=== PATIENT | female | born 1970 | race Caucasian/White ===

== ENCOUNTER 2025-03-08 18:55 | Emergency (ER) | payer MEDICAID ==
[2025-03-08 20:09] LABS: #Basophils 0.03 10x3/uL (0.0-0.2); #Eosinophils 0.34 10x3/uL (0.0-0.5); #Monocytes 0.77 10x3/uL (0.0-1.1); #Neutrophils 3.13 10x3/uL (1.5-8.4); %Basophils 0.4 % (0.0-2.0); %Eosinophils 4.4 % (0.0-6.0); %Lymphocytes 44.4 % (18.0-47.0); %Monocytes 10.0 % (0.0-10.0); %Neutrophils 40.4 % (40.0-75.0); Hematocrit 40.1 % (34.9-44.5); Hemoglobin 13.2 g/dL (12.0-15.5); Mean Corpuscular Hemoglobin 29.1 pg (27.0-33.0); Mean Corpuscular Volume 88.3 fL (81.6-98.3); Platelet Count 190 10x3/uL (150-450); Red Blood Cell (RBC) Count 4.54 10x6/uL (3.90-5.03); White Blood Cell (WBC) Count 7.73 10x3/uL (3.5-10.5)
[2025-03-08 20:25] LABS: ALT (SGPT) 33 U/L (Less than 34); AST (SGOT) 42 U/L (11-34); Albumin 3.3 g/dL (3.1-4.5); Alkaline Phosphatase 133 U/L (40-110); Anion Gap 11 mmol/L (10-20); BUN (Urea Nitrogen) 15 mg/dL (9.8-20.1); Bilirubin, Total 0.8 mg/dL (0.3-1.2); CK (CPK) 269 U/L (29-168); Calc. Creatinine Clearance 0 mL/min (70-130); Calcium 8.6 mg/dL (7.8-10.44); Carbon Dioxide 29 mmol/L (22-29); Chloride 101 mmol/L (98-107); Globulin 2.7 g/dL (2.4-3.5); Glucose 142 mg/dL (70-105); Potassium 4.1 mmol/L (3.5-5.1); Sodium 137 mmol/L (136-145)
[2025-03-08 20:30] LABS: Troponin I Less than 0.010 ng/mL (< 0.028)
[2025-03-08 21:00] LABS: Glucose, Urine (Dipstick) Normal (Negative); Leukocyte 500 (Negative); Protein, Urine (Dipstick) 30 mg/dl (Neg-Trace); Specific Gravity, Urine 1.025 (1.005-1.030)
[2025-03-08 21:07] LABS: Cocaine Metabolite Screen Negative (Negative); THC/Cannabinoid Screen Negative (Negative); Tricyclic Screen PRELIM POSITIVE (Negative)
[2025-03-08 21:10] LABS: CAUTI Indications for Culture Alt mental st,lethar; RBC/HPF 0-3 HPF (0-3); WBC/HPF 21-50 HPF (0-3)
[2025-03-08 21:11] LABS: Bacteria/HPF 4+ HPF (None Seen); Mucous/LPF 1+ LPF (<2+); Urine Culture Reflex Yes Yes
[2025-03-08] MEDS ORDERED: cefTRIAXone (ROCEPHIN) 1 GM VIAL ONE (21:36)
== END 2025-03-08 22:36 | disposition home or self-care (01) ==
LOC: CSHERS 18:55
DX: N39.0 Urinary tract infection, site not specified (principal); E86.0 Dehydration; F11.20 Opioid dependence, uncomplicated
CPT/HCPCS: 70450; 80053; 80306; 81001; 82550; 83605; 84484; 85025; 87086; 93005; 96365; J0696